=== PATIENT | female | born 1960 | race Caucasian/White ===

== ENCOUNTER 2020-09-16 07:56 | Outpatient (REF) | payer BC, SELFPAY ==
[2020-09-16 09:40] LABS: MANUAL DIFF FLAG NO
[2020-09-16 09:45] LABS: Eosinophils Absolute Auto 0.1 X10*3/uL (0.0-0.4); Eosinophils Percent Auto 2.9 % (0-4); Hemoglobin 14.7 g/dl (12.0-16.0); Imm Gran Abs Auto 0.01 X10*3/uL (0.00-0.03); Imm Gran Pct Auto 0.2 % (0.0-0.4); Lymphocytes Absolute Auto 1.2 X10*3/uL (1.2-4.9); Lymphocytes Percent Auto 28.5 % (20-40); Mean Corpuscular HGB Conc 32.7 g/dl (31.0-35.0); Mean Corpuscular Hemoglobin 31.2 pg (27.0-33.0); Mean Corpuscular Volume 95.5 fL (80-98); Mean Platelet Volume 11.7 fL (9.4-12.3); Monocytes Absolute Auto 0.2 X10*3/uL (0.1-1.2); Monocytes Percent Auto 5.5 % (2-11); Neutrophils Absolute Auto 2.6 X10*3/uL (2.0-8.3); Neutrophils Percent Auto 61.9 % (45-73); Platelet Count 205 X10*3/uL (160-400); Red Blood Count 4.71 X10*6/uL (4.20-5.50); White Blood Count 4.2 X10*3/uL (4.8-10.8)
[2020-09-16 10:29] LABS: Alanine Aminotransferase 15 U/L (0-31); Albumin Level 4.5 g/dL (3.5-5.0); Alkaline Phosphatase 50 U/L (39-117); Anion Gap 14 (12-20); Aspartate Amino Transferase 18 U/L (5-31); Bilirubin Total 2.3 mg/dL (0.0-1.0); Blood Urea Nitrogen 21 mg/dL (9-16); Calcium 8.8 mg/dL (8.4-10.2); Carbon Dioxide 28 mmol/L (22-29); Chloride 103 mmol/L (96-108); Cholesterol 193 mg/dL; Estimated Glomerular Filt Rate > 60; Glucose Fasting 93 mg/dL (60-99); HDL Cholesterol 64 mg/dL; LDL Cholesterol Calculated 109 mg/dl; Potassium 4.2 mmol/l (3.3-5.1); Sodium 141 mmol/L (135-145); Total Protein 6.9 g/dL (6.5-8.0); Triglycerides 101 mg/dL
[2020-09-16 10:41] LABS: T4 Thyroxine 7.3 ug/dL (4.5-12.0); Thyroid Stimulating Hormone 2.35 mIU/mL (0.32-4.0); Vitamin D 25-OH Total 28.1 ng/mL (>30)
[2020-09-16 10:50] LABS: Vitamin B12 298 pg/mL (200-900)
== END 2020-09-16 07:57 | disposition home or self-care (01) ==
LOC: HO.LAB 07:56
PROVIDERS: PCP Internal Medicine; Visit Provider Internal Medicine
DX: Z00.00 Encounter for general adult medical examination without abnormal findings (principal)
CPT/HCPCS: 36415; 80053; 80061; 82306; 82607; 82746; 84436; 84443; 85025

== ENCOUNTER 2022-07-12 09:05 | Outpatient (REF) | payer BC, SELFPAY ==
[2022-07-12 09:22] LABS: MANUAL DIFF FLAG NO
[2022-07-12 09:32] LABS: Basophils Absolute Auto 0.1 X10*3/uL (0.0-0.2); Basophils Percent Auto 0.9 % (0-2); Eosinophils Absolute Auto 0.1 X10*3/uL (0.0-0.4); Eosinophils Percent Auto 1.4 % (0-4); Hematocrit 42.8 % (37.0-47.0); Hemoglobin 13.8 g/dl (12.0-16.0); Imm Gran Abs Auto 0.01 X10*3/uL (0.00-0.03); Imm Gran Pct Auto 0.2 % (0.0-0.4); Lymphocytes Absolute Auto 1.4 X10*3/uL (1.2-4.9); Lymphocytes Percent Auto 20.9 % (20-40); Mean Corpuscular HGB Conc 32.2 g/dl (31.0-35.0); Mean Corpuscular Hemoglobin 29.9 pg (27.0-33.0); Mean Corpuscular Volume 92.8 fL (80.0-98.0); Mean Platelet Volume 10.5 fL (9.4-12.3); Monocytes Absolute Auto 0.4 X10*3/uL (0.1-1.2); Monocytes Percent Auto 6.8 % (2-11); Neutrophils Absolute Auto 4.5 x10*3/uL (2.0-8.3); Neutrophils Percent Auto 69.8 % (45-73); Platelet Count 270 X10*3/uL (160-400); Red Blood Count 4.61 X10*6/uL (4.20-5.50); White Blood Count 6.5 X10*3/uL (4.8-10.8)
[2022-07-12 09:58] LABS: Alanine Aminotransferase 12 U/L (0-31); Albumin Level 4.3 g/dL (3.5-5.0); Alkaline Phosphatase 74 U/L (39-117); Anion Gap 15 (12-20); Aspartate Amino Transferase 14 U/L (5-31); Bilirubin Total 1.5 mg/dL (0.0-1.0); Blood Urea Nitrogen 15 mg/dL (9-16); Calcium 9.2 mg/dL (8.4-10.2); Carbon Dioxide 29 mmol/L (22-29); Chloride 101 mmol/L (96-108); Cholesterol 186 mg/dL; Estimated Glomerular Filt Rate > 60; Glucose Random 105 mg/dL (60-115); HDL Cholesterol 55 mg/dL; LDL Cholesterol Calculated 115 mg/dl; Potassium 4.2 mmol/L (3.3-5.1); Sodium 141 mmol/L (135-145); Total Protein 7.2 g/dL (6.5-8.0); Triglycerides 81 mg/dL
[2022-07-12 10:21] LABS: Free T4 (Free Thyroxine) 1.19 ng/dL (0.71-1.85); Thyroid Stimulating Hormone 1.98 uIU/mL (0.32-4.0); Vitamin D 25-OH Total 53.7 ng/mL (>30)
[2022-07-12 11:13] LABS: Folate 19.2 ng/mL (> or = 4.0); Vitamin B12 197 pg/mL (200-900)
== END 2022-07-12 09:06 | disposition home or self-care (01) ==
LOC: HO.LAB 09:05
PROVIDERS: PCP Internal Medicine; Visit Provider Internal Medicine
DX: E80.4 Gilbert syndrome (principal); E78.00 Pure hypercholesterolemia, unspecified
CPT/HCPCS: 36415; 80053; 80061; 82306; 82607; 82746; 84439; 84443; 85025; 86900; 86901

== ENCOUNTER 2023-01-18 09:10 | Outpatient (REF) | payer BC, SELFPAY ==
[2023-01-18 11:02] LABS: Folate 16.2 ng/mL (> or = 4.0); Vitamin B12 619 pg/mL (200-900)
[2023-01-23 20:09] LABS: Intrinsic Factor Antibodies Negative (Negative)
[2023-01-25 13:09] LABS: Parietal Cell Antibody <=20.0 Unit (<=20.0)
== END 2023-01-18 09:11 | disposition home or self-care (01) ==
LOC: HO.LAB 09:10
PROVIDERS: PCP Internal Medicine; Visit Provider Internal Medicine
DX: E53.8 Deficiency of other specified B group vitamins (principal)
CPT/HCPCS: 36415; 82607; 82746; 83516; 86340

== ENCOUNTER 2023-07-13 07:35 | Outpatient (REF) | payer MEDICARE, BC, SELFPAY ==
[2023-07-13 07:49] LABS: MANUAL DIFF FLAG NO
[2023-07-13 08:04] LABS: Basophils Percent Auto 0.8 % (0-2); Eosinophils Absolute Auto 0.2 X10*3/uL (0.0-0.4); Eosinophils Percent Auto 3.3 % (0-4); Hematocrit 46.7 % (37.0-47.0); Hemoglobin 15.4 g/dl (12.0-16.0); Lymphocytes Absolute Auto 1.7 X10*3/uL (1.2-4.9); Lymphocytes Percent Auto 34.6 % (20-40); Mean Corpuscular Hemoglobin 31.5 pg (27.0-33.0); Mean Corpuscular Volume 95.5 fL (80.0-98.0); Mean Platelet Volume 11.1 fL (9.4-12.3); Monocytes Absolute Auto 0.3 X10*3/uL (0.1-1.2); Monocytes Percent Auto 6.2 % (2-11); Neutrophils Absolute Auto 2.7 x10*3/uL (2.0-8.3); Neutrophils Percent Auto 55.1 % (45-73); Platelet Count 199 X10*3/uL (160-400); Red Blood Count 4.89 X10*6/uL (4.20-5.50); Red Cell Distribution Width 12.4 % (11.0-16.0); White Blood Count 4.9 X10*3/uL (4.8-10.8)
[2023-07-13 08:54] LABS: Alanine Aminotransferase 15 U/L (0-31); Albumin Level 4.5 g/dL (3.5-5.0); Alkaline Phosphatase 57 U/L (39-117); Anion Gap 12 (12-20); Aspartate Amino Transferase 18 U/L (5-31); Bilirubin Total 1.7 mg/dL (0.0-1.0); Blood Urea Nitrogen 18 mg/dL (9-16); Calcium 9.5 mg/dL (8.4-10.2); Carbon Dioxide 30 mmol/L (22-29); Chloride 105 mmol/L (96-108); Cholesterol 201 mg/dL (<200); Estimated Glomerular Filt Rate > 60; Glucose Random 98 mg/dL (60-115); HDL Cholesterol 66 mg/dL (>40); LDL Cholesterol Calculated 115 mg/dL (<100); Potassium 4.2 mmol/L (3.3-5.1); Sodium 143 mmol/L (135-145); Total Protein 7.2 g/dL (6.5-8.0); Triglycerides 101 mg/dL (<150)
[2023-07-13 09:14] LABS: Free T4 (Free Thyroxine) 0.87 ng/dL (0.71-1.85); Vitamin D 25-OH Total 45.3 ng/mL (>30)
[2023-07-13 09:18] LABS: Folate 13.7 ng/mL (> or = 4.0); Vitamin B12 969 pg/mL (200-900)
[2023-07-15 21:23] LABS: Lyme Abs Screen <0.90 index
== END 2023-07-13 07:36 | disposition home or self-care (01) ==
LOC: HO.LAB 07:35
PROVIDERS: PCP Internal Medicine; Visit Provider Internal Medicine
DX: E80.4 Gilbert syndrome (principal); E78.00 Pure hypercholesterolemia, unspecified; E55.9 Vitamin D deficiency, unspecified
CPT/HCPCS: 36415; 80053; 80061; 82306; 82607; 82746; 84439; 84443; 85025; 86617; 86618

== ENCOUNTER 2023-07-23 12:18 | Outpatient (AMB) | payer MEDICARE, BC, SELFPAY ==
[2023-07-23 12:23] VITALS: BP 122/62; PULSE 70; O2SAT 98; BMI 17.2
--- NOTE | 2023-07-23 12:23 | A.OFFPC_ITS ---
Vital Signs 07/23/23 12:23 Height 5 ft 8 in Weight 113 lb BMI 17.2 BP 122/62 Blood Pressure Location Lt brachial Position Sitting Pulse 70 Pulse Source Pulse Oximeter Pulse Oximetry (%) 98 Oxygen Delivery Method Room Air Intake Visit Reasons: annual exam Allergies lidocaine [From Aspercreme (lidocaine HCl)] Allergy (Severe, Verified 07/23/23 12:23) Hive amoxicillin Allergy (Unknown, Verified 07/23/23 12:23) upset stomach meperidine [Demerol] Allergy (Unknown, Verified 07/23/23 12:23) Abdominal Pain tioconazole [Monistat 1 (tioconazole)] Allergy (Unknown, Verified 07/23/23 12:2 3) Abdominal Pain Gentamicin Sulfate Allergy (Unknown, Uncoded 07/23/23 13:03) eye itchiness (eye drop) Medication List - Last Reconciled 07/23/23 by Angel Anderson MD ascorbate calcium (vitamin C) 500 mg PO DAILY calcium carb,lactat-vitamin D3 200 mg-6.25 mcg (250 unit) 2 tabs PO BID cyanocobalamin (vitamin B-12) 1,000 mcg PO DAILY vitamin E mixed units PO Tobacco use date assessed: 07/23/23 Fall risk assessment: No Falls in past year Last assessed Fall Risk: 07/23/23 Dental Screening Dental Screen Date: 07/23/23 Did you have a dental visit in the last 12 months?: Yes Did you have a dental problem in the last 6 months where you did not have access to dental care?: No Was dental information given to patient?: Patient has dentist HPI annual exam HPI Details 63-year-old female with Gilbert's syndrome coming in for physical exam. Last seen in June 2022. Due for mammogram, and Cologuard test. 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 [facility] Medical History (Updated 07/23/23 @ 13:09 by Angel Anderson MD) Carbon monoxide poisoning Hyperbilirubinemia Macular pucker Right bundle branch block Snapping hip syndrome Surgical History (Updated 07/09/21 @ 16:00 by Angel Anderson MD) History of breast biopsy [place] teeth removed Family History (Updated 07/23/23 @ 13:05 by Angel Anderson MD) Sister Cervical cancer Maternal Aunt Myocardial infarct Paternal Grandmother Breast cancer Maternal Grandmother Myocardial infarct Social History (Updated 07/23/23 @ 13:05 by Angel Anderson MD) Housing: House Alcohol intake: current Patient Tobacco Use Status: Never used Tobacco e-Cigarette/Vaping Use: Never Used Second Hand Smoke Exposure: No service: No Current occupational status: employed Cognitive needs: No Hearing needs: No Vision needs: No Questionnaire PHQ-9 Over the last 2 weeks, how often have you been bothered by any of the following problems? 1. Little interest or pleasure in doing things: not at all 2. Feeling down, depressed, or hopeless: not at all 3. Trouble falling or staying asleep, or sleeping too much: not at all 4. Feeling tired or having little energy: not at all 5. Poor appetite or overeating: not at all 6. Feeling bad about yourself - or that you are a failure or have let yourself or your family down: not at all 7. Trouble concentrating on things, such as reading the newspaper or watching television: not at all 8. Moving or speaking so slowly that other people could have noticed. Or the opposite - being so fidgety or restless that you have been moving around a lot more than usual: not at all 9. Thoughts that you would be better off or of hurting yourself in some way: not at all Total score: 0 Depression Screening Interpretation: Negative Source: Developed by Drs. Virgil Smith, Candis Martinez, Juvenal Patricio and colleagues, with an educational owen from [employer]. Thrive Questionnaire Date Thrive assessed: 07/23/23 I am a: Patient What is your living situation today?: I have a steady place to live Within the past 12 months, did the food you bought not last and you didn't have the money to get more?: Never true Within the past 12 months, did you worry whether your food would run out before you got money to buy more?: Never true Do you have trouble paying for medicines?: No Do you have trouble getting transportation to medical appointments?: No Do you have trouble paying your heating and electricity bill?: No Do you have trouble taking care of your child, family member or friend?: No Do you have trouble with day-to-day activities such as bathing, preparing meals, shopping, managing finances, etc.?: No Are you currently unemployed and looking for a job?: No Are you interested in more education?: No Currently or been in a relationship where the following occur: no concerns reported AUDIT C Alcohol Use Questionnaire (AUDIT-C) 1. How often do you have a drink containing alcohol?: 2-3 times a week 2. How many drinks containing alcohol do you have on a typical day when you are drinking?: 1 or 2 3. How often do you have six or more drinks on one occasion?: Never Total Score: 3 GAB-7 AMB Questionnaire GAB-7 Date GAB - 7 assessed: 07/23/23 Feeling nervous, anxious, or on edge: 0 = Not at all Not being able to stop or control worryin = Not at all Worrying too much about different things: 0 = Not at all Trouble relaxin = Not at all Being so restless that it is hard to sit still: 0 = Not at all Becoming easily annoyed or irritable: 0 = Not at all Feeling afraid as if something awful might happen: 0 = Not at all Total GAB-7 score (0-4 normal; 5-9 mild; 10-14 moderate; 15-21 severe): 0 Source: Developed by Drs. Virgil Smith, Candis Martinez, Juvenal Patricio and colleagues, with an educational owen from [employer]. Review of Systems Const Denies poor appetite and Denies weakness Eyes Denies no additional complaints ENT Reports Normal hearing present, Denies dizziness, Denies nasal congestion, Denies tinnitus and Denies sore throat Card Denies chest pain, Denies syncope, Denies rapid heart rate and Denies dyspnea Resp Denies cough and Denies dyspnea GI Denies change in stool character, Reports constipation, Denies diarrhea, Denies nausea and Denies vomiting Denies urinary frequency, Denies difficulty voiding and Denies dysuria Neuro Reports Normal hearing present, Denies confusion, Denies dizziness, Denies syncope and Denies weakness Psych Denies confusion Physical exam (Primary Care) Vital Signs: Oxygen Delivery Method Room Air 07/23/23 12:23 Tobacco/Smoking Status: Tobacco use Status Tobacco use date assessed 07/23/23 07/23/23 12:25 Patient Tobacco Use Status Never used Tobacco 07/23/23 12:25 e-Cigarette/Vaping Use Never Used 07/23/23 12:25 PHQ-9: PHQ-9 Score PHQ-9: Total score 0 07/23/23 12:25 Depression Screening Interpretation: Negative Thrive Assessment: Date of Thrive Assessment Date Thrive assessed 07/23/23 07/23/23 12:25 Currently or been in a relationship where the following occur: no concerns reported Const General: No confusion Orientation/consciousness: No confusion HENMT Head: Yes normocephalic Ears: external ears normal and TM's normal bilaterally Face and sinus: Yes normal facial exam Mouth: moist mucous membranes Throat: Yes tonsils normal Eyes Conjunctivae: conjunctivae normal Pupils: Equal, round and reactive pupils present and Pupil accommodation reflex normal Direct Ophthalmoscopy: normal light reflex Neck Neck: No lymphadenopathy Thyroid: Thyroid normal Chest Chest palpation & inspection: normal inspection of the chest Resp Effort & Inspection: normal respiratory effort and no audible wheezes Auscultation: clear to auscultation bilaterally, no crackles, no wheezes and lung sounds not diminished Cardio Rate: regular rate Rhythm: regular rhythm Peripheral pulses: radial pulses present and dorsalis pedis present GI Palpation (GI): no masses Auscultation: normal bowel sounds and normoactive bowel sounds Rectal Exam - Female: deferred Skin General skin exam: no rashes or lesions noted Rashes: no rashes Neuro General: No confusion Cranial nerves: Yes Equal, round and reactive pupils present and Yes Normal hearing present Cognition (Neuro): normal cognition Gait exam (Neuro): Normal gait present Motor exam (neuro): 5/5 motor strength present throughout Deep tendon reflexes (DTR's): Right brachioradialis reflex intensity grade: 2+, Left brachioradialis reflex intensity grade: 2+, Right patellar reflex intensity grade: 2+ and Left patellar reflex intensity grade: 2+ Extrem General: No edema Assessment and Plan Assessment & Plan (1) Annual physical exam: Code(s): Z00.00 - Encounter for general adult medical examination without abnormal findings (2) [place] syndrome: Code(s): E80.4 - Gilbert syndrome Plan: Stable (3) Colon cancer screening: Code(s): Z12.11 - Encounter for screening for malignant neoplasm of colon Orders: Referrals Cologuard Test Z12.11 - Encounter for screening for malignant neoplasm of colon Coding Level of Care Code Est Pt Prev Care >65y(86892) Diagnoses Annual physical exam Z00.00 [place] syndrome E80.4 Colon cancer screening Z12.11
== END 2023-07-23 13:24 | disposition home or self-care (01) ==
PROVIDERS: PCP Internal Medicine; Visit Provider Internal Medicine
DX: Z00.00 Encounter for general adult medical examination without abnormal findings (principal); E80.4 Gilbert syndrome; Z12.11 Encounter for screening for malignant neoplasm of colon
CPT/HCPCS: 99397

== ENCOUNTER 2024-06-20 07:55 | Outpatient (REF) | payer MEDICARE, BC, SELFPAY ==
[2024-06-20 08:34] LABS: MANUAL DIFF FLAG NO
[2024-06-20 09:12] LABS: Basophils Percent Auto 0.8 % (0-2); Eosinophils Absolute Auto 0.1 X10*3/uL (0.0-0.4); Eosinophils Percent Auto 2.8 % (0-4); Hematocrit 43.6 % (37.0-47.0); Hemoglobin 14.5 g/dl (12.0-16.0); Imm Gran Abs Auto 0.01 X10*3/uL (0.00-0.03); Imm Gran Pct Auto 0.2 % (0.0-0.4); Lymphocytes Absolute Auto 1.4 X10*3/uL (1.2-4.9); Mean Corpuscular HGB Conc 33.3 g/dl (31.0-35.0); Mean Corpuscular Hemoglobin 31.9 pg (27.0-33.0); Mean Corpuscular Volume 95.8 fL (80.0-98.0); Mean Platelet Volume 11.2 fL (9.4-12.3); Monocytes Absolute Auto 0.3 X10*3/uL (0.1-1.2); Monocytes Percent Auto 6.7 % (2-11); Neutrophils Absolute Auto 3.1 x10*3/uL (2.0-8.3); Neutrophils Percent Auto 61.5 % (45-73); Platelet Count 193 X10*3/uL (160-400); Red Blood Count 4.55 X10*6/uL (4.20-5.50); Red Cell Distribution Width 12.4 % (11.0-16.0); White Blood Count 5.1 X10*3/uL (4.8-10.8)
[2024-06-20 10:20] LABS: Alanine Aminotransferase 16 U/L (0-31); Albumin Level 4.3 g/dL (3.5-5.0); Alkaline Phosphatase 53 U/L (39-117); Anion Gap 12 (12-20); Aspartate Amino Transferase 20 U/L (5-31); Blood Urea Nitrogen 20 mg/dL (9-16); Calcium 9.2 mg/dL (8.4-10.2); Carbon Dioxide 28 mmol/L (22-29); Chloride 105 mmol/L (96-108); Cholesterol 190 mg/dL (<200); Estimated Glomerular Filt Rate > 60; Glucose Random 95 mg/dL (60-115); HDL Cholesterol 61 mg/dL (>40); LDL Cholesterol Calculated 108 mg/dL (<100); Potassium 4.3 mmol/L (3.3-5.1); Sodium 141 mmol/L (135-145); Total Protein 6.8 g/dL (6.5-8.0); Triglycerides 109 mg/dL (<150)
[2024-06-20 10:23] LABS: Free T4 (Free Thyroxine) 0.95 ng/dL (0.71-1.85); Thyroid Stimulating Hormone 2.97 uIU/mL (0.32-4.0); Vitamin D 25-OH Total 51.4 ng/mL (>30)
[2024-06-20 11:05] LABS: Folate 12.3 ng/mL (> or = 4.0); Vitamin B12 478 pg/mL (200-900)
== END 2024-06-20 07:56 | disposition home or self-care (01) ==
LOC: HO.LAB 07:55
PROVIDERS: PCP Internal Medicine; Visit Provider Internal Medicine
DX: E80.4 Gilbert syndrome (principal); E78.00 Pure hypercholesterolemia, unspecified
CPT/HCPCS: 36415; 80053; 80061; 82306; 82607; 82746; 84439; 84443; 85025

== ENCOUNTER 2024-07-10 13:19 | Outpatient (AMB) | payer MEDICARE, BC, SELFPAY ==
[2024-07-10 13:29] VITALS: BP 104/70; PULSE 79; O2SAT 97; BMI 17.3
--- NOTE | 2024-07-10 13:29 | A.OFFPC_ITS ---
Vital Signs 07/10/24 13:29 Height 5 ft 8 in Weight 113 lb 8 oz BMI 17.3 BP 104/70 Blood Pressure Location Lt brachial Position Sitting Pulse 79 Pulse Source Pulse Oximeter Pulse Oximetry (%) 97 Oxygen Delivery Method Room Air Intake Visit Reasons: PE Rehabilitation Engineer Required: No Accompanied by: Significant Other Allergies lidocaine [From Aspercreme (lidocaine HCl)] Allergy (Severe, Verified 07/10/24 13:30) Hive amoxicillin Allergy (Unknown, Verified 07/10/24 13:30) upset stomach meperidine [Demerol] Allergy (Unknown, Verified 07/10/24 13:30) Abdominal Pain tioconazole [Monistat 1 (tioconazole)] Allergy (Unknown, Verified 07/10/24 13:30) Abdominal Pain Gentamicin Sulfate Allergy (Unknown, Uncoded 07/10/24 13:30) eye itchiness (eye drop) Medication List - Last Reconciled 07/10/24 by Angel Anderson MD ascorbate calcium (vitamin C) 500 mg PO DAILY calcium carb,lactat-vitamin D3 200 mg-6.25 mcg (250 unit) 2 tabs PO BID cyanocobalamin (vitamin B-12) 1,000 mcg orally 2x a week; vitamin E mixed units PO .QD Tobacco use date assessed: 07/10/24 Fall risk assessment: No Falls in past year Last assessed Fall Risk: 07/10/24 Dental Screening Dental Screen Date: 07/23/23 Did you have a dental visit in the last 12 months?: Yes Did you have a dental problem in the last 6 months where you did not have access to dental care?: No Was dental information given to patient?: Patient has dentist HPI PE HPI Details 64-year-old female with Gilbert's syndro me coming in for physical exam last seen in 08/07/2023. Patient is mammogram is done in [facility], colonoscopy Cologuard testing was done in 2019.. hearing aid. [facility] Medical History (Updated 12/13/23 @ 18:51 by Angel Anderson MD) 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 Right bundle branch block Hyperbilirubinemia Surgical History [place] teeth removed History of breast biopsy Family History Sister Cervical cancer Maternal Aunt Myocardial infarct Paternal Grandmother Breast cancer Maternal Grandmother Myocardial infarct Social History (Updated 07/10/24 @ 14:11 by Angel Anderson MD) Housing: House Alcohol intake: current Comment: once a week 1beer Patient Tobacco Use Status: Never used Tobacco e-Cigarette/Vaping Use: Never Used Second Hand Smoke Exposure: No service: No Current occupational status: employed Cognitive needs: No Hearing needs: No Vision needs: No Questionnaire PHQ-9 Over the last 2 weeks, how often have you been bothered by any of the following problems? 1. Little interest or pleasure in doing things: not at all 2. Feeling down, depressed, or hopeless: not at all 3. Trouble falling or staying asleep, or sleeping too much: not at all 4. Feeling tired or having little energy: not at all 5. Poor appetite or overeating: not at all 6. Feeling bad about yourself - or that you are a failure or have let yourself or your family down: not at all 7. Trouble concentrating on things, such as reading the newspaper or watching television: not at all 8. Moving or speaking so slowly that other people could have noticed. Or the opposite - being so fidgety or restless that you have been moving around a lot more than usual: not at all 9. Thoughts that you would be better off or of hurting yourself in some way: not at all Total score: 0 Depression Screening Interpretation: Negative Depression Screening Done: Yes Source: Developed by Drs. Virgil Smith, Candis Martinez, Juvenal Patricio and colleagues, with an educational owen from [employer] Thrive Questionnaire Date Thrive assessed: 07/10/24 I am a: Patient What is your living situation today?: I have a steady place to live Within the past 12 months, did the food you bought not last and you didn't have the money to get more?: Never true Within the past 12 months, did you worry whether your food would run out before you got money to buy more?: Never true Do you have trouble paying for medicines?: No Do you have trouble getting transportation to medical appointments?: No Do you have trouble paying your heating and electricity bill?: No Do you have trouble taking care of your child, family member or friend?: No Do you have trouble with day-to-day activities such as bathing, preparing meals, shopping, managing finances, etc.?: No Are you currently unemployed and looking for a job?: No Are you interested in more education?: No Please select the resources that you would like help with: None Currently or been in a relationship where the following occur: No concerns reported THRIVE Score: 0 AUDIT C Alcohol Use Questionnaire (AUDIT-C) 1. How often do you have a drink containing alcohol?: 2-3 times a week 2. How many drinks containing alcohol do you have on a typical day when you are drinking?: 1 or 2 3. How often do you have six or more drinks on one occasion?: Never Total Score: 3 GAB-7 AMB Questionnaire GAB-7 Date GAB - 7 assessed: 07/10/24 Feeling nervous, anxious, or on edge: 0 = Not at all Not being able to stop or control worryin = Not at all Worrying too much about different things: 0 = Not at all Trouble relaxin = Not at all Being so restless that it is hard to sit still: 0 = Not at all Becoming easily annoyed or irritable: 0 = Not at all Feeling afraid as if something awful might happen: 0 = Not at all Total GAB-7 score (0-4 normal; 5-9 mild; 10-14 moderate; 15-21 severe): 0 Source: Developed by Drs. Virgil Smith, Candis Martinez, Juvenal Patricio and colleagues, with an educational owen from [employer] Review of Systems Const Denies poor appetite and Denies weakness Eyes Denies no additional complaints ENT Reports Normal hearing present, Denies dizziness, Denies nasal congestion, Denies tinnitus and Denies sore throat Card Denies chest pain, Denies syncope, Denies rapid heart rate and Denies dyspnea Resp Denies cough and Denies dyspnea GI Denies change in stool character, Reports constipation, Denies diarrhea, Denies nausea and Denies vomiting Denies urinary frequency, Denies difficulty voiding and Denies dysuria Neuro Reports Normal hearing present, Denies confusion, Denies dizziness, Denies syncope and Denies weakness Psych Denies confusion Physical exam (Primary Care) Vital Signs: Last Vital Signs Pulse 79 07/10/24 13:29 BP 104/70 07/10/24 13:29 Pulse Ox 97 07/10/24 13:29 Oxygen Delivery Method Room Air 07/10/24 13:29 BMI result Body Mass Index 17.3 Tobacco/Smoking Status: Tobacco use Status Tobacco use date assessed 07/10/24 07/10/24 13:36 Patient Tobacco Use Status Never used Tobacco 07/10/24 13:36 e-Cigarette/Vaping Use Never Used 07/10/24 13:36 PHQ-9: PHQ-9 Score PHQ-9: Total score 0 07/10/24 14:13 Depression Screening Interpretation: Negative Thrive Assessment: Date of Thrive Assessment Date Thrive assessed 07/10/24 07/10/24 13:36 Currently or been in a relationship where the following occur: No concerns reported Const General: No confusion Orientation/consciousness: No confusion HENMT Head: Yes normocephalic Ears: external ears normal and TM's normal bilaterally Face and sinus: Yes normal facial exam Mouth: moist mucous membranes Throat: Yes tonsils normal Eyes Conjunctivae: conjunctivae normal Pupils: Equal, round and reactive pupils present and Pupil accommodation reflex normal Direct Ophthalmoscopy: normal light reflex Neck Neck: No lymphadenopathy Thyroid: Thyroid normal Chest Chest palpation & inspection: normal inspection of the chest Resp Effort & Inspection: normal respiratory effort and no audible wheezes Auscultation: clear to auscultation bilaterally, no crackles, no wheezes and lung sounds not diminished Cardio Rate: regular rate Rhythm: regular rhythm Peripheral pulses: radial pulses present and dorsalis pedis present GI Palpation (GI): no masses Auscultation: normal bowel sounds and normoactive bowel sounds Rectal Exam - Female: deferred Skin General skin exam: no rashes or lesions noted Rashes: no rashes Neuro General: No confusion Cranial nerves: Yes Equal, round and reactive pupils present and Yes Normal hearing present Cognition (Neuro): normal cognition Gait exam (Neuro): Normal gait present Motor exam (neuro): 5/5 motor strength present throughout Deep tendon reflexes (DTR's): Right brachioradialis reflex intensity grade: 2+, Left brachioradialis reflex intensity grade: 2+, Right patellar reflex intensity grade: 2+ and Left patellar reflex intensity grade: 2+ Extrem General: No edema Immunizations pneumoc 20-sergio conj-dip cr(PF) 0.5 mL IM syringe Performing Provider: Angel Anderson MD Performing Location: [facility] [place] [facility] Administered by: ONEL Elias on 07/10/24 14:44 Dose Route Admin Location Dispensed Lot Number Expiration Date NDC Crotch Piece Baster 0.5 mL IM Left Deltoid 0.5 mL [id number] 04/18/25 6967-5043-30 WYETH/PFIZER VIS Given Date VIS Provided VIS Publication Date 07/10/24 Single Vaccine 21 Eligibility Eligibility Date Funding Source Not VFC Eligible 07/10/24 Private tetanus-diphtheria toxoids-Td 2 Lf unit-2 Lf unit/0.5 mL IM suspension Performing Provider: Angel Anderson MD Performing Location: [facility] [place] [facility] Administered by: ONEL Elias on 07/10/24 14:44 Dose Route Admin Location Dispensed Lot Number Expiration Date NDC Crotch Piece Baster 0.5 mL IM Left Deltoid 0.5 mL [id number] 12/28/24 [address]-3 [employer] VIS Given Date VIS Provided VIS Publication Date 07/10/24 Single Vaccine 21 Eligibility Eligibility Date Funding Source Not VFC Eligible 07/10/24 State funds Assessment and Plan Assessment & Plan (1) Annual physical exam: Code(s): Z00.00 - Encounter for general adult medical examination without abnormal findings Plan: Patient is advised to eat healthy, keep well hydrated, keep active and have adequate sleep. (2) Breast cancer screening by mammogram: Code(s): Z12.31 - Encounter for screening mammogram for malignant neoplasm of breast Plan: Reminded about mammogram (3) [place] syndrome: Code(s): E80.4 - Gilbert syndrome Plan: Stable Orders: Orders Pneumococcal 20 Immunization Today Z23 - Encounter for immunization Td State Immunization Today Z23 - Encounter for immunization Medications: New tetanus-diphtheria toxoids-Td 0.5 mL IM ONCE 0.5 mL 0RF Z23 - Encounter for immunization pneumoc 20-sergio conj-dip cr(PF) 0.5 mL IM ONCE 0.5 mL 0RF Z23 - Encounter for immunization Coding Level of Care Code Est Pt Prev Care >65y(99523) Diagnoses Annual physical exam Z00.00 Breast cancer screening by mammogram Z12.31 [place] syndrome E80.4
== END 2024-07-10 14:49 | disposition home or self-care (01) ==
PROVIDERS: PCP Internal Medicine; Visit Provider Internal Medicine
DX: Z00.00 Encounter for general adult medical examination without abnormal findings (principal); Z12.31 Encounter for screening mammogram for malignant neoplasm of breast; E80.4 Gilbert syndrome; Z23 Encounter for immunization
CPT/HCPCS: 90471; 90677; 90714; 99397

== ENCOUNTER 2025-07-16 13:05 | Outpatient (AMB) | payer MEDICARE, BC, SELFPAY ==
[2025-07-16 13:12] VITALS: BP 118/68; PULSE 70; O2SAT 98; BMI 16.9
--- NOTE | 2025-07-16 13:12 | MHC.PC.OV ---
Vital Signs 07/16/25 13:12 Height 5 ft 8 in Weight 111 lb BMI 16.9 BP 118/68 Blood Pressure Location Lt brachial Position Sitting Pulse 70 Pulse Source Pulse Oximeter Pulse Oximetry (%) 98 Oxygen Delivery Method Room Air Intake Visit Reasons: Annual Exam Allergies lidocaine (From Aspercreme (lidocaine HCl)) Allergy (Severe, Verified 07/16/25 13:12) Hive amoxicillin Allergy (Unknown, Verified 07/16/25 13:12) upset stomach meperidine (Demerol) Allergy (Unknown, Verified 07/16/25 13:12) Abdominal Pain tioconazole (Monistat 1 (tioconazole)) Allergy (Unknown, Verified 07/16/25 13:12) Abdominal Pain Gentamicin Sulfate Allergy (Unknown, Uncoded 07/16/25 13:12) eye itchiness (eye drop) Medication List - Last Reconciled 07/16/25 by Angel Anderson MD ascorbate calcium (vitamin C) 500 mg PO DAILY calcium carb,lactat-vitamin D3 200 mg-6.25 mcg (250 unit) 2 tabs PO BID cyanocobalamin (vitamin B-12) 1,000 mcg orally 2x a week; vitamin E mixed units PO .QD Tobacco use date assessed: 07/16/25 Fall risk assessment: No Falls in past year Last assessed Fall Risk: 07/16/25 Dental Screening Dental Screen Date: 07/16/25 Did you have a dental visit in the last 12 months?: Yes Did you have a dental problem in the last 6 months where you did not have access to dental care?: No Was dental information given to patient?: Patient has dentist [facility] Medical History (Updated 12/13/23 @ 18:51 by Angel Anderson MD) 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 Right bundle branch block Hyperbilirubinemia Surgical History [place] teeth removed History of breast biopsy Family History Sister Cervical cancer Maternal Aunt Myocardial infarct Paternal Grandmother Breast cancer Maternal Grandmother Myocardial infarct Social History (Updated 07/10/24 @ 14:11 by Angel Anderson MD) Housing: House Alcohol intake: current Comment: once a week 1beer Patient Tobacco Use Status: Never used Tobacco Tobacco use type: Cigarette e-Cigarette/Vaping Use: Never Used Second Hand Smoke Exposure: No service: No Current occupational status: employed Cognitive needs: No Hearing needs: No Vision needs: No Questionnaire PHQ-9 Over the last 2 weeks, how often have you been bothered by any of the following problems? 1. Little interest or pleasure in doing things: not at all 2. Feeling down, depressed, or hopeless: not at all 3. Trouble falling or staying asleep, or sleeping too much: not at all 4. Feeling tired or having little energy: not at all 5. Poor appetite or overeating: not at all 6. Feeling bad about yourself - or that you are a failure or have let yourself or your family down: not at all 7. Trouble concentrating on things, such as reading the newspaper or watching television: not at all 8. Moving or speaking so slowly that other people could have noticed. Or the opposite - being so fidgety or restless that you have been moving around a lot more than usual: not at all 9. Thoughts that you would be better off or of hurting yourself in some way: not at all Total score: 0 Depression Screening Interpretation: Negative Depression Screening Done: Yes 42750 - PHQ-9 Billing: Yes Source: Developed by Drs. Virgil Smith, Candis Martinez, Juvenal Patricio and colleagues, with an educational owen from [employer]. Thrive Questionnaire Date Thrive assessed: 07/16/25 I am a: Patient What is your living situation today?: I have a steady place to live Within the past 12 months, did the food you bought not last and you didn't have the money to get more?: Never true Within the past 12 months, did you worry whether your food would run out before you got money to buy more?: Never true Do you have trouble paying for medicines?: No Do you have trouble getting transportation to medical appointments?: No Do you have trouble paying your heating and electricity bill?: No Do you have trouble taking care of your child, family member or friend?: No Do you have trouble with day-to-day activities such as bathing, preparing meals, shopping, managing finances, etc.?: No Are you currently unemployed and looking for a job?: No Are you interested in more education?: No Please select the resources that you would like help with: None Currently or been in a relationship where the following occur: No concerns reported THRIVE Score: 0 AUDIT C Alcohol Use Questionnaire (AUDIT-C) 1. How often do you have a drink containing alcohol?: 2-4 times a month 2. How many drinks containing alcohol do you have on a typical day when you are drinking?: 1 or 2 3. How often do you have six or more drinks on one occasion?: Never Total Score: 2 GAB-7 AMB Questionnaire GAB-7 Date GAB - 7 assessed: 07/16/25 Feeling nervous, anxious, or on edge: 0 = Not at all Not being able to stop or control worryin = Not at all Worrying too much about different things: 0 = Not at all Trouble relaxin = Not at all Being so restless that it is hard to sit still: 0 = Not at all Becoming easily annoyed or irritable: 1 = Several days Feeling afraid as if something awful might happen: 0 = Not at all Total GAB-7 score (0-4 normal; 5-9 mild; 10-14 moderate; 15-21 severe): 1 Source: Developed by Drs. Virgil Smith, Candis Martinez, Juvenal Patricio and colleagues, with an educational owen from [employer]. GAB-7 Assessment Billing GAB-7 Assessment Tool: GAB-7 Assessment 88712 Review of Systems Const Denies poor appetite and Denies weakness Eyes Denies no additional complaints ENT Reports Normal hearing present, Denies dizziness, Denies nasal congestion, Denies tinnitus and Denies sore throat Card Denies chest pain, Denies syncope, Denies rapid heart rate and Denies dyspnea Resp Denies cough and Denies dyspnea GI Denies change in stool character, Reports constipation, Denies diarrhea, Denies nausea and Denies vomiting Denies urinary frequency, Denies difficulty voiding and Denies dysuria Neuro Reports Normal hearing present, Denies confusion, Denies dizziness, Denies syncope and Denies weakness Psych Denies confusion Physical exam (Primary Care) Vital Signs: Last Vital Signs Pulse 70 07/16/25 13:12 BP 118/68 07/16/25 13:12 Pulse Ox 98 07/16/25 13:12 Oxygen Delivery Method Room Air 07/16/25 13:12 BMI result Body Mass Index 16.9 Tobacco/Smoking Status: Tobacco use Status Tobacco use date assessed 07/16/25 07/16/25 13:13 Patient Tobacco Use Status Never used Tobacco 07/16/25 13:13 Tobacco use type Cigarette 07/16/25 13:13 e-Cigarette/Vaping Use Never Used 07/16/25 13:13 PHQ-9: PHQ-9 Score PHQ-9: Total score 0 07/16/25 14:19 Depression Screening Interpretation: Negative Thrive Assessment: Date of Thrive Assessment Date Thrive assessed 07/16/25 07/16/25 13:13 Currently or been in a relationship where the following occur: No concerns reported Const General: No confusion Orientation/consciousness: No confusion HENMT Head: Yes normocephalic Ears: external ears normal and TM's normal bilaterally Face and sinus: Yes normal facial exam Mouth: moist mucous membranes Throat: Yes tonsils normal Eyes Conjunctivae: conjunctivae normal Pupils: Equal, round and reactive pupils present and Pupil accommodation reflex normal Direct Ophthalmoscopy: normal light reflex Neck Neck: No lymphadenopathy Thyroid: Thyroid normal Chest Chest palpation & inspection: normal inspection of the chest Resp Effort & Inspection: normal respiratory effort and no audible wheezes Auscultation: clear to auscultation bilaterally, no crackles, no wheezes and lung sounds not diminished Cardio Rate: regular rate Rhythm: regular rhythm Peripheral pulses: radial pulses present and dorsalis pedis present GI Palpation (GI): no masses Auscultation: normal bowel sounds and normoactive bowel sounds Rectal Exam - Female: deferred Skin General skin exam: no rashes or lesions noted Rashes: no rashes Neuro General: No confusion Cranial nerves: Yes Equal, round and reactive pupils present and Yes Normal hearing present Cognition (Neuro): normal cognition Gait exam (Neuro): Normal gait present Motor exam (neuro): 5/5 motor strength present throughout Deep tendon reflexes (DTR's): Right brachioradialis reflex intensity grade: 2+, Left brachioradialis reflex intensity grade: 2+, Right patellar reflex intensity grade: 2+ and Left patellar reflex intensity grade: 2+ Extrem General: No edema Coding Level of Care Code Est Pt Prev Care >65y(27214) Diagnoses Annual physical exam Z00.00 [place] syndrome E80.4 Additional Codes GAB-7 Assessment Billing - GAB-7 Assessment Tool: GAB-7 Assessment 58507 ([id number]) PHQ-9 - 67646 - PHQ-9 Billing: Yes ([id number]) Assessment & Plan Assessment & Plan (1) Annual physical exam: Code(s): Z00.00 - Encounter for general adult medical examination without abnormal findings Category: Medical Plan: Patient is advised to eat healthy, keep well hydrated, keep active and have adequate sleep. (2) [place] syndrome: Code(s): E80.4 - [place] syndrome Category: Medical Plan History of Present Illness The patient is a 65-year-old female presenting for an annual physical examination. She has a history of eczema, last evaluated in February 2025, and benign skin lesions including melanocytic nevi and seborrheic keratosis. The patient experienced an allergic reaction to the pneumonia vaccine, resulting in arm swelling and redness, requiring urgent care. She has allergies to several medications and foods, including kiwi and birch-related fruits. In December, she contracted norovirus, leading to gastrointestinal symptoms and a six-pound weight loss, with symptoms lasting about a week and a half. The patient uses hearing aids due to hearing loss, with regular maintenance checks every six months, and denies recent changes in hearing. Preventative care includes up-to-date mammogram, bone density scan, and colonoscopy, along with COVID-19 and pneumonia vaccinations, the latter causing an adverse reaction. Health Maintenance - Mammogram: Up to date as of April 2024 - Bone density scan: Up to date as of April 2024 - Colonoscopy: Up to date as of July 2023 - COVID-19 vaccination: Completed - Pneumonia vaccination: Completed, with noted adverse reaction Social History - Alcohol consumption: Once or twice a week, typically on Sundays and after golf on - Exercise: Engages in golfing and gardening regularly - Hearing: Uses hearing aids, with maintenance checks every six months - Family history: Brother with celiac disease and history of acid reflux Review of Systems - General: Denies recent weight loss or gain, reports previous weight loss due to norovirus - Skin: Reports eczema, melanocytic nevi, and seborrheic keratosis - Respiratory: Denies shortness of breath, cough, or wheezing - Cardiovascular: Denies chest pain, palpitations, or syncope - Gastrointestinal: Reports previous norovirus infection with diarrhea, denies current nausea, vomiting, or abdominal pain - Genitourinary: Denies dysuria, frequency, or urgency - Neurological: Denies dizziness, headaches, or balance issues - Musculoskeletal: Denies joint pain or swelling - Allergic/Immunologic: Reports multiple allergies to medications and foods Physical Exam General: Cooperative, healthy appearing, comfortable, no acute distress and well developed Orientation: Patient oriented x3 Limitations: No limitations Head: Normal to inspection Ears: Hearing aids present, hearing grossly normal bilaterally Nose: Normal external nose present Face and sinus: Normal facial exam Eyes: Appearance normal, both eyes and all related structures Neck: Normal visual inspection and Yes full ROM Respiratory: Normal respiratory effort and able to speak in complete sentences. Clear to auscultation bilaterally Cardiovascular: Regular rate and rhythm. Normal S1 and S2 GI: Normal to inspection. Soft to palpation and nontender Skin: Benign skin lesions noted, no cancers Neuro: Patient oriented x3 Extremities: Normal to inspection Results - Labs: Normal blood count, electrolytes, renal function, liver function, cholesterol (LDL 108 mg/dL), B12, folic acid, and thyroid levels as of June last year Plan Patient was informed and verbally consented to the use of an ambient scribe for clinic note documentation during this visit. 1. Eczema The patient will continue to follow up with dermatology for management of eczema, with the last visit in February 2025. 2. Melanocytic Nevi Regular dermatological evaluations are recommended to monitor melanocytic nevi for any changes. 3. Seborrheic Keratosis The patient will continue routine skin checks to monitor seborrheic keratosis, with no current intervention required. 4. Allergic Reactions The patient should avoid known allergens, including specific medications and foods, and carry antihistamines for mild reactions. 5. Norovirus Infection The patient has recovered from norovirus infection, with no further treatment required. 6. Hearing Loss The patient will continue using hearing aids with regular maintenance checks every six months. 7. Preventative Care The patient is advised to maintain up-to-date screenings and vaccinations, including mammogram, bone density scan, colonoscopy, COVID-19, and pneumonia vaccinations. Discussion Notes During the visit, we discussed the importance of maintaining up-to-date preventative care, including mammograms, bone density scans, and colonoscopies. We also reviewed the patient's allergies and the need to avoid known allergens, as well as the management of eczema and benign skin lesions. The patient was advised to continue using hearing aids and to follow up with dermatology as needed. Patient Instructions - Continue regular dermatology follow-ups for eczema and skin checks. - Avoid known allergens and carry antihistamines for mild allergic reactions. - Maintain up-to-date screenings and vaccinations, including mammogram, bone density scan, colonoscopy, COVID-19, and pneumonia vaccinations. - Use hearing aids regularly and attend maintenance checks every six months. Orders: Orders Complete Blood Count Auto Diff Today Z00.00 - Encounter for general adult medical examination without abnormal findings Comprehensive Met. Panel Today Z00.00 - Encounter for general adult medical examination without abnormal findings UA CC w/rflx Micro + Cult Today R30.0 - Dysuria, Z00.00 - Encounter for general adult medical examination without abnormal findings Vitamin D 25-OH Total Today Z00.00 - Encounter for general adult medical examination without abnormal findings Thyroid Stimulating Hormone Today Z00.00 - Encounter for general adult medical examination without abnormal findings Lipid Panel Today E78.00 - Pure hypercholesterolemia, unspecified, Z00.00 - Encounter for general adult medical examination without abnormal findings Free T4 (Free Thyroxine) Today Z00.00 - Encounter for general adult medical examination without abnormal findings Vitamin B12 and Folate Today Z00.00 - Encounter for general adult medical examination without abnormal findings
== END 2025-07-16 14:39 | disposition home or self-care (01) ==
LOC: HO.HMCH 13:06
PROVIDERS: PCP Internal Medicine; Visit Provider Internal Medicine
DX: Z00.00 Encounter for general adult medical examination without abnormal findings (principal); E80.4 Gilbert syndrome

== ENCOUNTER → 2025-07-16 13:05 | Outpatient (BNVA) | payer MEDICARE, BC, SELFPAY | PROVIDERS: PCP Internal Medicine; Visit Provider Internal Medicine | DX: Z00.00 Encounter for general adult medical examination without abnormal findings (principal); E80.4 Gilbert syndrome | CPT/HCPCS: 96127; 99397 ==

== ENCOUNTER 2025-07-17 07:56 | Outpatient (REF) | payer MEDICARE, BC, SELFPAY ==
[2025-07-17 08:10] LABS: MANUAL DIFF FLAG NO
[2025-07-17 08:57] LABS: Hematocrit 43.8 % (37.0-47.0); Hemoglobin 14.7 g/dl (12.0-16.0); Imm Gran Abs Auto 0.02 X10*3/uL (0.00-0.03); Imm Gran Pct Auto 0.4 % (0.0-0.4); Lymphocytes Absolute Auto 1.5 X10*3/uL (1.2-4.9); Mean Corpuscular HGB Conc 33.6 g/dl (31.0-35.0); Mean Corpuscular Hemoglobin 31.5 pg (27.0-33.0); Mean Corpuscular Volume 94.0 fL (80.0-98.0); NRBC Abs Auto 0.000 X10*3/uL (0.0-0.012); NRBC Pct Auto 0.0 /100WBC (0.0-0.2); Platelet Count 203 X10*3/uL (160-400); Red Blood Count 4.66 X10*6/uL (4.20-5.50); White Blood Count 5.3 X10*3/uL (4.8-10.8)
[2025-07-17 09:41] LABS: Alanine Aminotransferase 19 U/L (0-31); Albumin Level 4.7 g/dL (3.5-5.0); Alkaline Phosphatase 61 U/L (39-117); Anion Gap 12 (12-20); Aspartate Amino Transferase 23 U/L (5-31); Blood Urea Nitrogen 23 mg/dL (9-16); Calcium 9.3 mg/dL (8.4-10.2); Carbon Dioxide 30 mmol/L (22-29); Chloride 105 mmol/L (96-108); Cholesterol 200 mg/dL (<200); Estimated Glomerular Filt Rate > 60; HDL Cholesterol 56 mg/dL (>40); Potassium 3.9 mmol/L (3.3-5.1); Sodium 143 mmol/L (135-145); Total Protein 7.1 g/dL (6.5-8.0); Triglycerides 124 mg/dL (<150)
[2025-07-17 10:04] LABS: Free T4 (Free Thyroxine) 1.11 ng/dL (0.71-1.85); Thyroid Stimulating Hormone 2.49 uIU/mL (0.32-4.0)
[2025-07-17 10:06] LABS: Folate 12.6 ng/mL (> or = 4.0); Vitamin B12 617 pg/mL (200-900)
[2025-07-17 10:11] LABS: Appearance Urine Clear; Glucose Urine UA Negative (Negative); PH 5.5 (5.0-9.0); Specific Gravity - Urine 1.020 (1.005-1.025); UMIC TRIGGER UACC YES
== END 2025-07-17 07:57 | disposition home or self-care (01) ==
LOC: HO.LAB 07:56
PROVIDERS: PCP Internal Medicine; Visit Provider Internal Medicine
DX: Z00.00 Encounter for general adult medical examination without abnormal findings (principal); E78.00 Pure hypercholesterolemia, unspecified; R30.0 Dysuria
CPT/HCPCS: 36415; 80053; 80061; 81001; 81003; 82306; 82607; 82746; 84439; 84443; 85025

== ENCOUNTER 2025-10-13 09:39 | Outpatient (AMB) | payer MEDICARE, BC, SELFPAY ==
[2025-10-13 09:48] VITALS: BP 124/72; PULSE 83; O2SAT 98; BMI 17.9
--- NOTE | 2025-10-13 09:48 | MHC.PC.OV ---
Vital Signs 10/13/25 09:48 Height 5 ft 8 in Weight 118 lb BMI 17.9 BP 124/72 Blood Pressure Location Rt brachial Position Sitting Pulse 83 Pulse Source Pulse Oximeter Pulse Oximetry (%) 98 Oxygen Delivery Method Room Air Intake Visit Reasons: Shoulder pain Allergies lidocaine (From Aspercreme (lidocaine HCl)) Allergy (Severe, Verified 10/13/25 09:48) Hive amoxicillin Allergy (Unknown, Verified 10/13/25 09:48) upset stomach meperidine (Demerol) Allergy (Unknown, Verified 10/13/25 09:48) Abdominal Pain tioconazole (Monistat 1 (tioconazole)) Allergy (Unknown, Verified 10/13/25 09:48) Abdominal Pain Gentamicin Sulfate Allergy (Unknown, Uncoded 10/13/25 09:48) eye itchiness (eye drop) Medication List - Last Reconciled 10/13/25 by Angel Anderson MD ascorbate calcium (vitamin C) 500 mg PO DAILY calcium carb,lactat-vitamin D3 200 mg-6.25 mcg (250 unit) 2 tabs PO BID cyanocobalamin (vitamin B-12) 1,000 mcg orally 2x a week; vitamin E mixed units PO .QD Tobacco use date assessed: 07/16/25 Fall risk assessment: No Falls in past year Last assessed Fall Risk: 10/13/25 Dental Screening Dental Screen Date: 07/16/25 HPI HPI Comments History of Present Illness Details History of Present Illness The patient is a 65-year-old individual presenting for an acute problem of right arm pain. The patient reports that for a couple of weeks, the left arm was sore in the mornings after sleeping on it, but the current issue is with the right arm. The pain began after decorating a Kumar tree and performing a stretching exercise; the following day, the patient could not move the arm. There was no fall or direct trauma, and the patient denies any numbness in the hands. 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 The patient is also being treated for plantar fasciitis by an payroll tax specialist and is using a half-patch of nitroglycerin on the heel for 12 hours a day, which has been helping. The patient initially experienced headaches with the patch, which have since subsided, but they can recur, particularly if the patch is worn for longer than prescribed. Due to the medication, the patient avoids alcohol to prevent a drop in blood pressure. The patient has an allergy to cortisone. Past medical history is significant for Gilbert's syndrome and tinnitus. Health maintenance screenings, including a mammogram, bone density test, and a Cologuard test in July 2023, are all up to date. Blood work from July 17 was normal, including CBC, electrolytes, renal and liver function, cholesterol, B12, vitamin D, folic acid, and thyroid levels, as was a urine test. Health Maintenance The patient is up to date with age-appropriate screenings, including mammography, bone density scan, and colon cancer screening via Cologuard. Recent labs from June were within normal limits. Continue routine health maintenance. Social History - Substance Use: The patient is currently abstaining from alcohol due to a potential interaction with the nitroglycerin patch that could cause hypotension. - Level of activity: The patient's recent activities include decorating for the holidays. Results - Labs: Blood work from July 17 was normal for CBC, electrolytes, renal function, liver function, cholesterol, B12, vitamin D, folic acid, and thyroid levels. - Urinalysis: Normal as of July 17. - Screening Tests: Cologuard was completed in July 2023. [facility] Medical History (Updated 10/13/25 @ 10:27 by Angel Anderson MD) Bicipital tendinitis of right shoulder 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 Right bundle branch block Hyperbilirubinemia Surgical History [place] teeth removed History of breast biopsy Family History Sister Cervical cancer Maternal Aunt Myocardial infarct Paternal Grandmother Breast cancer Maternal Grandmother Myocardial infarct Social History (Updated 07/10/24 @ 14:11 by Angel Anderson MD) Housing: House Alcohol intake: current Comment: once a week 1beer Patient Tobacco Use Status: Never used Tobacco Tobacco use type: Cigarette e-Cigarette/Vaping Use: Never Used Second Hand Smoke Exposure: No service: No Current occupational status: employed Cognitive needs: No Hearing needs: No Vision needs: No Questionnaire Thrive Questionnaire Date Thrive assessed: 07/10/25 I am a: Patient What is your living situation today?: I have a steady place to live Within the past 12 months, did the food you bought not last and you didn't have the money to get more?: Never true Within the past 12 months, did you worry whether your food would run out before you got money to buy more?: Never true Do you have trouble paying for medicines?: No Do you have trouble getting transportation to medical appointments?: No Do you have trouble paying your heating and electricity bill?: No Do you have trouble taking care of your child, family member or friend?: No Do you have trouble with day-to-day activities such as bathing, preparing meals, shopping, managing finances, etc.?: No Are you currently unemployed and looking for a job?: No Are you interested in more education?: No Please select the resources that you would like help with: None Currently or been in a relationship where the following occur: No concerns reported THRIVE Score: 0 GAB-7 AMB Questionnaire GAB-7 Date GAB - 7 assessed: 07/16/25 Source: Developed by Drs. Virgil Smith, Candis Martinez, Juvenal Patricio and colleagues, with an educational owen from [employer]. Review of Systems Narrative Review of Systems - Musculoskeletal: Reports acute right arm pain, characterized as sharp with lifting, making it difficult to move the arm. - Reports a history of frozen shoulder and current plantar fasciitis. - Neurological: Reports occasional headaches associated with nitroglycerin patch use. - Denies numbness in the hands. - Dermatological: Denies any rash on the arm. - Constitutional: Reports difficulty sleeping due to arm pain. - Denies recent falls or trauma. - ENT: Reports a history of tinnitus. Physical exam (Primary Care) Vital Signs: Last Vital Signs Pulse 83 10/13/25 09:48 BP 124/72 10/13/25 09:48 Pulse Ox 98 10/13/25 09:48 Oxygen Delivery Method Room Air 10/13/25 09:48 BMI result Body Mass Index 17.9 Tobacco/Smoking Status: Tobacco use Status Tobacco use date assessed 07/16/25 10/13/25 09:52 Patient Tobacco Use Status Never used Tobacco 10/13/25 09:52 Tobacco use type Cigarette 10/13/25 09:52 e-Cigarette/Vaping Use Never Used 10/13/25 09:52 Thrive Assessment: Date of Thrive Assessment Date Thrive assessed 07/10/25 10/13/25 09:52 Currently or been in a relationship where the following occur: No concerns reported Narrative Physical Exam - Musculoskeletal: Examination of the right arm reveals sensitivity to palpation over the biceps tendon. - Pain is localized to the anterior arm. - Skin: No rash is observed on the arm. Const General: alert; No acute distress Eyes Conjunctivae: conjunctivae normal Resp Auscultation: clear to auscultation bilaterally Cardio Rate: regular rate Rhythm: regular rhythm GI Inspection: Yes normal to inspection Extrem General: Yes normal to inspection and No edema Coding Level of Care Code Est Pt Level 3 (90143) Diagnoses Bicipital tendinitis of left shoulder M75.22 Assessment & Plan Assessment & Plan (1) Bicipital tendinitis of left shoulder: Code(s): M75.22 - Bicipital tendinitis, left shoulder Category: Medical Plan Plan Patient was informed and verbally consented to the use of an ambient scribe for clinic note documentation during this visit. 1. Right Arm Bicipital Tendinitis The patient's acute right arm pain, following exertion and with point tenderness over the biceps tendon, is consistent with tendon inflammation. [facility] requested. For pain management, the patient was advised on using NSAIDs like ibuprofen or diclofenac, with a caution about potential kidney effects with prolonged use, despite currently normal renal function. It was suggested to alternate NSAIDs with acetaminophen 1000 mg up to three times a day for safer, extended pain management. The patient was instructed to apply heat to the affected area two to three times daily to increase blood supply and promote healing. 2. Plantar Fasciitis The patient is under the care of [facility] for plantar fasciitis and reports improvement with a nitroglycerin patch. The patient was counseled on the side effects of nitroglycerin, including headaches and the risk of hypotension, particularly with alcohol consumption. The patient will follow up with the orthopedist on Saturday and was advised that if the patch is to be discontinued, it can be stopped abruptly. A discussion was had regarding the averseness to cortisone injections due to allergy and other advanced treatments like platelet injections mentioned by the specialist. Discussion Notes I discussed with the patient that the right arm pain is due to tendon inflammation, likely biceps tendinitis, from a recent overexertion injury. I explained the management plan, which includes a referral for physical therapy, application of heat to promote healing, and options for pain relief. We reviewed the use of anti-inflammatory medications like ibuprofen and diclofenac, and I highlighted the potential risks to the kidneys with continuous use, recommending alternation with Tylenol as a safer long-term strategy. I also confirmed the absence of a rash to rule out shingles as a cause of pain. We discussed the patient's ongoing treatment for plantar fasciitis with a nitroglycerin patch. I explained its mechanism as a vasodilator and reviewed associated side effects, such as headaches and the potential for hypotension if combined with alcohol. I advised that the patch can be discontinued without tapering if recommended by the specialist. We also acknowledged the patient's allergy to cortisone. Patient Instructions - We are sending a referral for physical therapy to [facility] [place] for your right arm pain. - Apply a heating pad to your sore arm 2 to 3 times per day. - This increases blood flow and helps the tendon heal. - For pain, you can take anti-inflammatory medicine like ibuprofen or diclofenac, but be sure to take it with food. - Avoid taking it every day for more than a week to protect your kidneys. - You can alternate the anti-inflammatory medicine with Tylenol (acetaminophen). - It is safe to take two 500 mg tablets of Tylenol up to three times a day. - Continue to follow your orthopedic doctor's advice regarding the nitroglycerin patch for your foot. - Remember that this patch can cause headaches and a drop in blood pressure if you drink alcohol. - If your doctor tells you to stop the patch, you can stop it all at once without weaning off. - Let us know if you develop a rash on your arm. Orders: Orders PT Evaluation and Treatment Today M75.22 - Bicipital tendinitis, left shoulder
== END 2025-10-13 10:25 | disposition home or self-care (01) ==
LOC: HO.HMCH 09:40
PROVIDERS: PCP Internal Medicine; Visit Provider Internal Medicine
DX: M75.22 Bicipital tendinitis, left shoulder (principal)

== ENCOUNTER → 2025-10-13 09:39 | Outpatient (BNVA) | payer MEDICARE, BC, SELFPAY | PROVIDERS: PCP Internal Medicine; Visit Provider Internal Medicine | DX: M75.22 Bicipital tendinitis, left shoulder (principal) | CPT/HCPCS: 99212 ==